=== PATIENT | female | born 1985 | race Caucasian/White ===

== ENCOUNTER 2021-08-20 21:16 | Emergency (ER) | payer OTHER ==
[~2021-08-20 21:16] MED LIST: AMOXICILLIN500 MG OR; CEPHALEXIN500 MG OR; PROAIR HFA IN; TYLENOL # 31 TAB OR
== END 2021-08-20 23:04 | disposition left against medical advice (07) | DRG 951 ==
LOC: ED 21:16 → LWOBS 23:02
DX: Z53.21 Procedure and treatment not carried out due to patient leaving prior to being seen by health care provider (principal)